=== PATIENT | female | born 1965 | race Caucasian/White ===

== ENCOUNTER → 2018-01-15 08:43 | Outpatient (CLI) | payer BC, SELFPAY ==
--- NOTE | 2018-01-15 08:45 | MM_ITS ---
MM Dig screening mamm BI w/CAD ORDERING PHYSICIAN : WM Paco Sahni PATIENT AGE: 52 years GENDER: Female COMPARISON: Awaiting outside films from [place] but they have not arrived. And now Report requested INDICATION: ITS.REASON: Routine SCREENING no hormones. No new complaints.Noncontributory family history. This patient had uterine cancer 23 years ago TECHNIQUE: Standard CC and MLO images were obtained. R2 CAD reviewed. Additional CC right breast with additional nipple profile MLO view left breast included. FINDINGS: Low-density breast bilaterally. Minimal residual fibroglandular elements with moderate Generalized fatty replacement. No persistent suspicious mass. No Dominant mass. Nor suspicious calcifications either breast. .. Left breast. Unremarkable. No areas of common or concern. RIGHT BREAST. No areas of significant concern Subtle area focal density superior right breast on MLO view dissipates not evident on the two cc view views of the right breast and thus not felt to be of concern.Follow-up in one year adequate Small collection of benign-appearing calcifications the medial right breast can be followed as well. Next Bilateral follow-up in one year recommended and should be encouraged. IMPRESSION: Low-density breast with no areas of significant concern.. Bilateral follow-up one year recommended at this point. (We have been waiting outside studies from [place] but they have not yet arrived. Addendum may follow it does do become available BI-RADS Category: 2 Benign Finding(s) RECOMMENDED FOLLOW-UP: 1YR 1 YEAR FOLLOW-UP ) (A letter has been sent to the patient regarding results of the study.)
== END ==
PROVIDERS: PCP Family Medicine; Visit Provider Family Medicine
DX: Z12.31 Encounter for screening mammogram for malignant neoplasm of breast (principal)
CPT/HCPCS: 77067

== ENCOUNTER → 2018-12-16 14:44 | Outpatient (CLI) | payer BC, SELFPAY ==
[2018-12-16 17:48] LABS: Basophils % 0.7 % (0.1-2.0); Eosinophils # 0.1 K/mm3 (0.0-0.4); Eosinophils % 2.3 % (0.1-12.0); Hematocrit 41.1 % (37.0-47.0); Lymphocytes # 1.2 K/mm3 (0.7-4.5); Lymphocytes % 32.8 % (10-50); Mean Corpuscular HGB Conc 31.7 g/dL (31.8-35.4); Mean Corpuscular Hemoglobin 31.4 pg (27.0-31.2); Mean Corpuscular Volume 98.9 fl (81-99); Mean Platelet Volume 8.5 fl (7.4-10.4); Monocytes # 0.2 K/mm3 (0.1-1.0); Neutrophils # 2.2 K/mm3 (1.8-7.8); Neutrophils % 58.3 % (37.0-80.0); Platelet Count 91 K/mm3 (142-424); Red Blood Count 4.15 M/mm3 (4.20-5.40); Red Cell Distribution Width 13.6 % (11.5-17.5); White Blood Count 3.7 K/mm3 (4.8-10.8)
[2018-12-18 05:11] LABS: Hep A Ab, IgM Negative (Negative); Hepatitis B Core Antibody IgM Negative (Negative); Hepatitis B Surface Antigen Negative (Negative)
[2018-12-18 18:15] LABS: Hepatitis C Antibody <0.1 s/co ratio (0.0-0.9)
== END ==
PROVIDERS: Visit Provider Internal Medicine Hematology & Oncology
DX: D69.6 Thrombocytopenia, unspecified (principal)
CPT/HCPCS: 36415; 80074; 85025

== ENCOUNTER → 2019-01-28 10:18 | Outpatient (CLI) | payer BC, SELFPAY ==
--- NOTE | 2019-01-28 10:22 | MM_ITS ---
PROCEDURE: MM DIG SCREENING MAMM BI W/CAD CLINICAL INDICATION: SCREENING There is no personal or family history of breast cancer. COMPARISON: DIG MAMMO BILAT SCREENING from 06/10/2013 DIG MAMMO BILAT SCREENING from 06/20/2014 DIG MAMMO BILAT SCREENING from 07/11/2015 [facility] MM Dig screening mamm BI w/CAD from 01/15/2018 TECHNIQUE: Standard CC and MLO images were obtained. R2 CAD reviewed. FINDINGS: Scattered diffuse fibroglandular densities are seen throughout both breasts. There is a stable cluster of microcalcifications inner quadrant right breast. There are couple of benign-appearing microcalcifications central portion left breast as well. There is no suspicious lesion and no suspicious microcalcifications. IMPRESSION: Fibrofatty parenchyma with no suspicious lesions seen BI-RAD Category: 2 Benign Finding(s) FOLLOW-UP: 1YR 1 Year Follow-up (A letter has been sent to the patient regarding results of the study.) Dictated by: Dr. Brandon Marie MD 01/30/2019 09:[address] Brandon Marie MD in [place] 01/30/2019 09:31
== END ==
PROVIDERS: PCP Family Medicine; Visit Provider Family Medicine
DX: Z12.31 Encounter for screening mammogram for malignant neoplasm of breast (principal)
CPT/HCPCS: 77067

== ENCOUNTER → 2019-02-28 13:21 | Outpatient (POV) | payer BC, SELFPAY ==
[2019-02-28 15:24] LABS: Basophils % 0.7 % (0.1-2.0); Eosinophils # 0.1 K/mm3 (0.0-0.4); Hematocrit 43.8 % (37.0-47.0); Lymphocytes # 1.2 K/mm3 (0.7-4.5); Lymphocytes % 29.4 % (10-50); Mean Corpuscular HGB Conc 32.1 g/dL (31.8-35.4); Mean Corpuscular Hemoglobin 30.1 pg (27.0-31.2); Mean Corpuscular Volume 93.8 fl (81-99); Mean Platelet Volume 8.6 fl (7.4-10.4); Monocytes # 0.2 K/mm3 (0.1-1.0); Monocytes % 4.7 % (1.7-9.3); Neutrophils # 2.6 K/mm3 (1.8-7.8); Neutrophils % 62.3 % (37.0-80.0); Platelet Count 114 K/mm3 (142-424); Red Blood Count 4.67 M/mm3 (4.20-5.40); Red Cell Distribution Width 13.4 % (11.5-17.5); White Blood Count 4.2 K/mm3 (4.8-10.8)
[2019-02-28 15:28] LABS: INR 1.04 (0.9-1.1); Prothrombin Time 10.8 seconds (9.4-11.8)
[2019-02-28 16:36] LABS: Alanine Aminotransferase 52 U/L (12-78); Albumin Level 3.5 gm/dL (3.4-5.0); Alkaline Phosphatase 117 U/L (46-116); Anion Gap 9.1 mEq/L (5-15); Aspartate Amino Transferase 69 U/L (15-37); Bilirubin,Total 0.8 mg/dL (0.2-1.0); Blood Urea Nitrogen 10 mg/dL (7-18); Calcium 8.7 mg/dL (8.5-10.1); Carbon Dioxide 29 mmol/L (21.0-32.0); Chloride 102 mmol/L (98-107); Estimated Glomerular Filt Rate 105 ml/min (>60); Ferritin 164 ng/mL (8-388); GFR (African American) 127 ML/MIN (>60); Globulin 3.6 gm/dl (1.3-3.2); Glucose 92 mg/dL (74-106); Potassium 4.1 mmoL/L (3.5-5.1); Sodium 136 mmol/L (136-145); Total Protein,Serum 7.1 gm/dL (6.4-8.2)
[2019-03-02 10:29] LABS: Hep A Ab, IgM Negative (Negative); Hepatitis B Core Antibody IgM Negative (Negative); Hepatitis B Surface Antigen Negative (Negative); Iron 87 ug/dL (27-159); Iron Saturation 22 % (15-55); UIBC 300 ug/dL (131-425)
[2019-03-02 11:39] LABS: Ceruloplasmin 25.1 mg/dL (19.0-39.0); Immunoglobulin A, Qn 603 mg/dL (87-352); Immunoglobulin G, Qn 1450 mg/dL (700-1600)
[2019-03-02 18:17] LABS: Actin (Smooth Muscle) Antibody 16 Units (0-19); Angiotensin Converting Enzyme 21 U/L (14-82); Deamidated Gliadin Abs, IgA 4 units (0-19); Deamidated Gliadin Abs, IgG 2 units (0-19); Immunoglobulin M, Qn 142 mg/dL (26-217); Liver-Kidney Microsomal Ab 1.6 Units (0.0-20.0); Mitochondrial (M2) Antibody <20.0 Units (0.0-20.0); Tissue Transglutaminase IgA Ab <2 U/mL (0-3); Tissue Transglutaminase IgG Ab 4 U/mL (0-5)
[2019-03-02 18:18] LABS: Hepatitis C Antibody <0.1 s/co ratio (0.0-0.9)
[2019-03-04 12:33] LABS: Endomysial IgA Antibody Negative (Negative)
[2019-03-04 17:08] LABS: Alpha-1-Antitrypsin 161 mg/dL (101-187)
[2019-03-05 06:09] LABS: ALT (SGPT) P5P 57 IU/L (0-40); AST (SGOT) P5P 82 IU/L (0-40); Alpha 2-Macroglobulins, Qn 352 mg/dL (110-276); Apolipoprotein A-1 165 mg/dL (116-209); Bilirubin, Total 0.7 mg/dL (0.0-1.2); Cholesterol, Total 223 mg/dL (100-199); Fibrosis Score 0.78 (0.00-0.21); GGT 100 IU/L (0-60); Glucose 90 mg/dL (65-99); Haptoglobin 21 mg/dL (33-346); NASH Score 0.75 (0.25); Steatosis Score 0.54 (0.00-0.30); Triglycerides 106 mg/dL (0-149)
[2019-03-05 09:11] LABS: Reticulin IgA Antibody Negative titer (Neg:<1:2.5)
[2019-03-12 16:39] LABS: Antinuclear Antibodies (ANA) NEGATIVE
== END ==
PROVIDERS: Visit Provider Nurse Practitioner Family
DX: R94.5 Abnormal results of liver function studies (principal); R16.1 Splenomegaly, not elsewhere classified
CPT/HCPCS: 36415; 80053; 80074; 81256; 82103; 82104; 82164; 82390; 82728; 82784; 83516; 83540; 83550; 85025; 85610; 86038; 86255; 86256; 86376

== ENCOUNTER → 2020-02-09 16:03 | Outpatient (CLI) | payer BC, SELFPAY ==
--- NOTE | 2020-02-09 16:06 | MM_ITS ---
PROCEDURE: MM DIG SCREENING MAMM BI W/CAD Referring Doctor: Delvis Rosario Patient Age:54Y CLINICAL INDICATION: SCREENING 54-year-old. No new complaints. No hormones. Patient states hysterectomy age 30 uterine cancer Family history-unremarkable COMPARISON: MG DIG MAMMO BILAT SCREENING from 05/28/2011 MG DIG MAMMO BILAT SCREENING from 06/10/2013 MG DIG MAMMO BILAT SCREENING from 06/20/2014 MG DIG MAMMO BILAT SCREENING from 07/11/2015 [facility] MM Dig screening mamm BI w/CAD from 01/15/2018 MG MM DIG SCREENING MAMM BI W/CAD from 01/28/2019 TECHNIQUE: Standard CC and MLO images were obtained. R2 CAD reviewed. Bilateral digital breast tomosynthesis included. Additional right MLO view nipple profile included FINDINGS: -. Minimal residual fibroglandular elements with diffuse fatty replacement but no new dominant or suspicious mass but no suspicious calcifications No new areas of concern when compared to to multiple prior studies. IMPRESSION: Stable mammogram bilateral. No new areas of concern when compared to to multiple prior studies. Low-density breast; bilateral follow-up 1 year recommended BI-RAD Category: 1 Negative FOLLOW-UP: 1YR 1 Year Follow-up (A letter has been sent to the patient regarding results of the study.) Dictated by: Tani Tijerina MD 02/12/2020 16:42 Tani Tijerina MD in [place] 02/12/2020 16:42
== END ==
PROVIDERS: Visit Provider Physician Assistant
DX: Z12.31 Encounter for screening mammogram for malignant neoplasm of breast (principal)
CPT/HCPCS: 77063; 77067

== ENCOUNTER 2021-05-02 16:55 | Emergency (ER) | payer BC, SELFPAY ==
[2021-05-02 16:57] VITALS: BP 121/63; PULSE 91; RESP 18; TEMP 36.9; O2SAT 98; BMI 40.7
--- NOTE | 2021-05-02 17:19 | XR_ITS ---
PROCEDURE INFORMATION: Exam: XR Chest Exam date and time: 05/02/2021 5:24 PM Age: 55 years old Clinical indication: Shortness of breath; Additional info: SOB TECHNIQUE: Imaging protocol: XR of the chest. Views: 1 view. Total images: 2 COMPARISON: No relevant prior studies available. FINDINGS: Lungs: Question mild central vascular congestion. Patchy mild alveolar density in the medial right lung base, atelectasis versus pneumonia. Pleural spaces: No pleural effusion. No pneumothorax. Heart/Mediastinum: Heart size normal. No tracheal/mediastinal shift. Diaphragm: Mild elevation of the right hemidiaphragm, age indeterminate. Bones/joints: No acute osseous abnormalities are identified. IMPRESSION: 1. Mild airspace disease in the medial right lung base, atelectasis versus pneumonia. 2. Mild elevation of the right hemidiaphragm.
[2021-05-02 18:01] LABS: Basophils # 0.2 K/mm3 (0-0.2); Basophils % 3.9 % (0.1-2.0); Eosinophils # 0.1 K/mm3 (0.0-0.4); Eosinophils % 2.3 % (0.1-12.0); Hematocrit 34.2 % (37.0-47.0); Hemoglobin 10.9 g/dL (12.2-16.2); Lymphocytes # 0.8 K/mm3 (0.7-4.5); Lymphocytes % 21.2 % (10-50); Mean Corpuscular HGB Conc 31.9 g/dL (31.8-35.4); Mean Corpuscular Hemoglobin 32.3 pg (27.0-31.2); Mean Corpuscular Volume 101.3 fl (81-99); Monocytes # 0.3 K/mm3 (0.1-1.0); Monocytes % 9.1 % (1.7-9.3); Neutrophils # 2.3 K/mm3 (1.8-7.8); Neutrophils % 63.5 % (37.0-80.0); Platelet Count 89 K/mm3 (142-424); Red Blood Count 3.37 M/mm3 (4.20-5.40); Red Cell Distribution Width 15.8 % (11.5-17.5); White Blood Count 3.7 K/mm3 (4.8-10.8)
--- NOTE | 2021-05-02 18:12 | HMH.EDGENADL ---
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 Wear compression stockings during the day to minimize leg swelling. Continue home medications as previously directed, return with new or concerning symptoms. Prescriptions: Amoxicillin/Potassium Clav [Amox-Clav 875-125 mg Tablet] 1 tab PO BID #14 tab Transmission Status: Received by [facility] Doxycycline Monohydrate [Doxycycline [place] 100mg Tab] 100 mg PO Q12 5 Days #10 tab Transmission Status: Received by [facility] Referrals: Delvis Rosario PA [Primary Care Provider] - - Critical Care Critical Care Time: No Attestation: On 05/02/21, the high probability of a clinically significant, sudden or life threatening deterioration of the following system(s) required my full and direct attention, intervention and personal management. The time I documented below is in addition to time spent performing reported procedures but includes the following listed in this critical care notation. Medical Decision Making - Medical Records Medical records reviewed: Yes: I reviewed the patient's medical records. - Brodie Inquiry Pt receiving controlled substance: No Vital Signs: 05/02/21 16:57 Temperature 98.4 F Temperature Source Oral Pulse Rate [Radial] 91 H Respiratory Rate 18 Blood Pressure [Right Arm] 121/63 Blood Pressure Mean [Right Arm] 82 Blood Pressure Position [Right Arm] Sitting 02 Sat by Pulse Oximetry 98 Oxygen Delivery Method Room Air - Lab Data Lab Results 05/02/21 17:45: WBC 3.7 L, RBC 3.37 L, Hgb 10.9 L, Hct 34.2 L, MCV 101.3 H, MCH 32.3 H, MCHC 31.9, RDW 15.8, Plt Count 89 L, MPV 9.0, Neut % (Auto) 63.5, Lymph % (Auto) 21.2, [place] % (Auto) 9.1, Eos % (Auto) 2.3, Baso % (Auto) 3.9 H, Neut # (Auto) 2.3, Lymph # (Auto) 0.8, [place] # (Auto) 0.3, Eos # (Auto) 0.1, Baso # (Auto) 0.2 05/02/21 17:45: Sodium 136, Potassium 3.6, Chloride 109 H, Carbon Dioxide 26, Anion Gap 4.6 L, BUN 9, Creatinine 0.50 L, Estimated Creat Clear 223, Estimated GFR 128, Est GFR ( Amer) 155, Glucose 140 H, Calcium 7.4 L, Total Bilirubin 2.0 H, AST 100 H, ALT 49, Alkaline Phosphatase 172 H, Troponin I 0.02, Total Protein 6.2 L, Albumin 2.9 L, Globulin 3.3 H, Albumin/Globulin Ratio 0.9 L 05/02/21 17:45: PT 12.3, INR 1.10 05/02/21 17:45: NT-Pro-B Natriuret Pep 62.3 Result diagrams: 05/02/21 17:45 05/02/21 17:45 Orders (Tests/Meds): ORDERS Category Date Time Status Troponin I Q3H Lab 05/02/21 23:30 Ordered Urinalysis and Microscopic Stat Lab 05/02/21 20:36 Received - Radiology Data #1 Image(s): Chest Image Reviewed: Yes I reviewed the patient's radiology results, Yes I reviewed the patient's radiology image FINDINGS: Lungs: Question mild central vascular congestion. Patchy mild alveolar density in the medial right lung base, atelectasis versus pneumonia. Pleural spaces: No pleural effusion. No pneumothorax. Heart/Mediastinum: Heart size normal. No tracheal/mediastinal shift. Diaphragm: Mild elevation of the right hemidiaphragm, age indeterminate. Bones/joints: No acute osseous abnormalities are identified. IMPRESSION: 1. Mild airspace disease in the medial right lung base, atelectasis versus pneumonia. 2. Mild elevation of the right hemidiaphragm. - ECG Data Tracing #1 I reviewed this ECG and interpreted as documented below: EKG normal sinus rhythm with a rate of 85 bpm, Q waves in lead III no ST segment elevation, no ST depression Medical Decision Narrative: 55-year-old female with past medical history of Montes cirrhosis diabetes who is prese
[2021-05-02 18:13] LABS: Chloride 109 mmol/L (98-107)
[2021-05-02 18:14] LABS: Potassium 3.6 mmoL/L (3.5-5.1); Sodium 136 mmol/L (136-145)
[2021-05-02 18:16] LABS: Alanine Aminotransferase 49 U/L (12-78); Albumin Level 2.9 g/dl (3.5-5.0); Albumin/Globulin Ratio 0.9 (1.1-1.8); Alkaline Phosphatase 172 U/L (38-126); Anion Gap 4.6 mEq/L (5-15); Aspartate Amino Transferase 100 U/L (14-36); Blood Urea Nitrogen 9 mg/dl (7-17); Carbon Dioxide 26 mmol/L (22.0-30.0); Creatinine Clearance Estimated 223 mL/min (50-200); Estimated Glomerular Filt Rate 128 ml/min (>60); GFR (African American) 155 ML/MIN (>60); Globulin 3.3 g/dL (1.3-3.2); Total Protein,Serum 6.2 g/dl (6.3-8.2)
[2021-05-02 18:17] LABS: Calcium 7.4 mg/dl (8.4-10.2); Glucose 140 mg/dl (74-100)
[2021-05-02 18:29] LABS: Troponin I 0.02 ng/ml (0.00-0.034)
--- NOTE | 2021-05-02 19:01 | ECG_ITS ---
APPROVED REPORT Exam: Resting ECG HR:85 bpm ECG Measurements Heart Rate 85 AXES KS 179 P 30 QRSd 102 QRS 39 QT 384 T 51 QTc 426 Conclusion SINUS RHYTHM NORMAL ECG UNCONFIRMED REPORT Electronically signed by : Lorenzo Senior MD 05/03/2021 19:38:36
[2021-05-02 19:07] LABS: Prothrombin Time 12.3 seconds (10.1-12.5)
--- NOTE | 2021-05-02 19:09 | PC.NURSE ---
PT RESTING UPDATED ON PLAN OF CARE
[2021-05-02 19:39] LABS: NT Pro Brain Natriuretic Pep. 62.3 pg/mL (0-125)
[2021-05-02 20:49] LABS: Microscopic, Urine URINE MICROSCOPIC (MICROSCOPIC)
[2021-05-02 21:17] LABS: Appearance,Urine CLEAR (Clear); Blood, Urine 1+ (Negative); Color,Urine YELLOW (Yellow); Glucose,Urine (UA) Negative (Negative); Ketones,Urine Negative (Negative); Leukocyte Esterase,Urine Negative (Negative); Nitrate,Urine Negative (Negative); Protein,Urine Negative (Negative); Specific Gravity, Urine 1.025 (1.005-1.030)
[2021-05-02 21:23] LABS: Bilirubin,Urine Negative (Negative)
[2021-05-02 21:25] VITALS: BP 121/63; PULSE 92; RESP 16; TEMP 37.1; O2SAT 98
[2021-05-02 22:04] LABS: Bacteria,Urine Trace /lpf; RBC,Urine Occasional #/hpf (0-3)
== END 2021-05-02 21:28 | disposition home or self-care (01) ==
PROVIDERS: Emergency Provider Emergency Medicine; PCP Physician Assistant
DX: J18.9 Pneumonia, unspecified organism (principal); J98.11 Atelectasis; R19.7 Diarrhea, unspecified; R11.0 Nausea; I10 Essential (primary) hypertension; E78.5 Hyperlipidemia, unspecified; E11.9 Type 2 diabetes mellitus without complications; K75.81 Nonalcoholic steatohepatitis (NASH); K74.60 Unspecified cirrhosis of liver; F41.9 Anxiety disorder, unspecified; Z79.84 Long term (current) use of oral hypoglycemic drugs; Z79.899 Other long term (current) drug therapy; Z82.49 Family history of ischemic heart disease and other diseases of the circulatory system; Z83.3 Family history of diabetes mellitus; Z80.9 Family history of malignant neoplasm, unspecified
CPT/HCPCS: 71045; 80053; 81001; 83880; 84484; 85025; 85610; 93005; 96365; 99285

== ENCOUNTER 2021-07-01 11:42 | Emergency (ER) | payer BC, SELFPAY ==
[2021-07-01] VITALS (16 sets, daily range): BP systolic 84–117; BP diastolic 31–56; PULSE 88–95; RESP 16–24; TEMP 36.4–37.2; O2SAT 92–100; BMI 38.2
--- NOTE | 2021-07-01 12:02 | XR_ITS ---
FINAL REPORT CLINICAL HISTORY: WEAKNESS, sob COMPARISON: 05/02/2021 FINDINGS: A single PA view of the chest was obtained. There is no prior exam for comparison. The cardiac and mediastinal silhouettes are within normal limits. There are low lung volumes. Bibasilar opacities could be atelectasis or early pneumonia. There is no effusion or pneumothorax. No acute osseous abnormality is identified. IMPRESSION: Bibasilar opacities could represent atelectasis or pneumonia. Reviewed, Interpreted and Dictated by Destiny Leo MD Transcribed by Cesilia Marie Authenticated by Destiny Leo MD on 07/01/2021 01:21:23 PM [facility]
[2021-07-01 12:10] LABS: Basophils % 0.5 % (0.1-2.0); Eosinophils % 0.5 % (0.1-12.0); Lymphocytes # 0.9 K/mm3 (0.7-4.5); Lymphocytes % 10.9 % (10-50); Mean Corpuscular HGB Conc 33.2 g/dL (31.8-35.4); Mean Corpuscular Hemoglobin 31.5 pg (27.0-31.2); Mean Corpuscular Volume 94.9 fl (81-99); Mean Platelet Volume 8.5 fl (7.4-10.4); Monocytes # 0.5 K/mm3 (0.1-1.0); Monocytes % 5.9 % (1.7-9.3); Neutrophils # 6.9 K/mm3 (1.8-7.8); Neutrophils % 82.2 % (37.0-80.0); Platelet Count 168 K/mm3 (142-424); Red Blood Count 3.47 M/mm3 (4.20-5.40); Red Cell Distribution Width 17.2 % (11.5-17.5); White Blood Count 8.4 K/mm3 (4.8-10.8)
[2021-07-01 12:18] LABS: Alanine Aminotransferase 135 U/L (12-78); Albumin Level 2.5 g/dl (3.5-5.0); Albumin/Globulin Ratio 0.7 (1.1-1.8); Alkaline Phosphatase 191 U/L (38-126); Anion Gap 12.7 mEq/L (5-15); Aspartate Amino Transferase 458 U/L (14-36); Bilirubin,Total 2.7 mg/dl (0.2-1.3); Blood Urea Nitrogen 58 mg/dl (7-17); Calcium 7.3 mg/dl (8.4-10.2); Carbon Dioxide 21 mmol/L (22.0-30.0); Chloride 103 mmol/L (98-107); Creatinine Clearance Estimated 44 mL/min (50-200); Estimated Glomerular Filt Rate 21 ml/min (>60); GFR (African American) 25 ML/MIN (>60); Globulin 3.6 g/dL (1.3-3.2); Glucose 91 mg/dl (74-100); Potassium 4.7 mmoL/L (3.5-5.1); Sodium 132 mmol/L (136-145); Total Protein,Serum 6.1 g/dl (6.3-8.2)
[2021-07-01 12:24] LABS: Lactic Acid 1.3 mmol/L (0.7-2.1)
[2021-07-01 12:27] LABS: Ammonia 124 umol/L (9-30); INR 1.19 (0.9-1.1); Prothrombin Time 13.3 seconds (10.1-12.5)
--- NOTE | 2021-07-01 13:34 | PC.NURSE ---
ER doctor talking to Dr Thornton at about patient.
[2021-07-01 13:52] LABS: Microscopic, Urine URINE MICROSCOPIC (MICROSCOPIC)
[2021-07-01 13:56] LABS: Coronavirus 19, PCR Not Detected (NotDetected); Influenza A, PCR Not Detected (NotDetected); Influenza B, PCR Not Detected (NotDetected)
--- NOTE | 2021-07-01 13:57 | CT_ITS ---
FINAL REPORT TECHNIQUE: Thin section axial images were obtained from the lung bases to the pubic symphysis without IV contrast. CLINICAL HISTORY: abd pain, diarrhea, decompnesated cirrhosis FINDINGS: There is dependent atelectasis in the lung bases. The liver is small and nodular, consistent with cirrhosis. No focal lesion is seen on this unenhanced exam. There is borderline splenomegaly measuring 12.5 cm. The adrenal glands and pancreas are unremarkable. No renal mass, stone, or hydronephrosis is seen. Abdominal GI tract demonstrates wall thickening of small bowel loops and colon, greater than normally seen in the setting of ascites. Underlying colitis is not excluded. There is moderate abdominal ascites. There is a Fernando catheter in the urinary bladder. The uterus has likely been resected. The appendix is not visualized. There is a large amount of ascites in the pelvis. There is no lymphadenopathy. Osseous structures are unremarkable. IMPRESSION: Cirrhosis with moderate to large ascites. Colonic wall thickening greater than expected in the setting of ascites. Underlying colitis is not excluded. Reviewed, Interpreted and Dictated by Destiny Leo MD Transcribed by Mahsa Sheikh Authenticated by Destiny Leo MD on 07/01/2021 03:14:09 PM [facility]
[2021-07-01 14:02] LABS: Appearance,Urine CLOUDY (Clear); Blood, Urine TRACE-I (Negative); Color,Urine YELLOW (Yellow); Glucose,Urine (UA) Negative (Negative); Ketones,Urine TRACE (Negative); Leukocyte Esterase,Urine TRACE (Negative); Nitrate,Urine Negative (Negative); Protein,Urine TRACE (Negative); Specific Gravity, Urine >= 1.030 (1.005-1.030)
[2021-07-01 14:04] LABS: Appearance,Body Fld. Normal; Source, Body Fld. Peritoneal Fluid
[2021-07-01 14:05] LABS: RBC,Body Fluid < 10 cells/uL (< 10 X 10^3); TNC,Body Fluid < 20 cells/uL (< 1000); Volume,Body Fld. 22 mL
[2021-07-01 14:19] LABS: Bilirubin,Urine 2+ (Negative)
[2021-07-01 14:20] LABS: Bacteria,Urine 3+ /lpf
--- NOTE | 2021-07-01 14:53 | PC.NURSE ---
Dr Farooq speaking with Dr Thornton at
--- NOTE | 2021-07-01 15:22 | HMH.EDGENADL ---
ED Disposition Clinical Impression: Severe sepsis, Shock, Decompensated hepatic cirrhosis Disposition: Xfer Short-Term Hosp Condition on Discharge: Critical Referrals: Provider,Referral, [Primary Care Provider] - Forms: Transfer Record - ED - Critical Care Critical Care Time: Yes Attestation: On 07/01/21, the high probability of a clinically significant, sudden or life threatening deterioration of the following system(s) required my full and direct attention, intervention and personal management. The time I documented below is in addition to time spent performing reported procedures but includes the following listed in this critical care notation. Total Critical Care Time: 75 Vital system(s) involved:: Circulatory Failure, Metabolic Failure, Shock (Septic) My critical care processes included: Assessment & monitoring of V/S, Initial and Re-exams, Data Review/Interpretation, Coordinating Care, Medication Orders and management, Documentation Medical Decision Making - Medical Records Medical records reviewed: Yes: I reviewed the patient's medical records. - Brodie Inquiry Pt receiving controlled substance: No Vital Signs: 07/01/21 11:43 07/01/21 12:00 07/01/21 12:30 Temperature 97.5 F L Temperature Source Oral Pulse Rate 93 H 92 H Pulse Rate [Radial] 90 Respiratory Rate 24 20 18 Blood Pressure 90/39 L 96/43 L Blood Pressure [Right Arm] 84/31 L Blood Pressure Mean 59 61 Blood Pressure Mean [Right Arm] 48 Blood Pressure Position [Right Arm] Sitting 02 Sat by Pulse Oximetry 98 98 100 Oxygen Delivery Method Room Air 07/01/21 13:00 07/01/21 13:30 07/01/21 14:01 Temperature Temperature Source Pulse Rate 91 H 90 95 H Pulse Rate [Radial] Respiratory Rate 18 20 18 Blood Pressure 92/39 L 87/35 L 117/56 L Blood Pressure [Right Arm] Blood Pressure Mean 53 48 66 Blood Pressure Mean [Right Arm] Blood Pressure Position [Right Arm] 02 Sat by Pulse Oximetry 99 99 99 Oxygen Delivery Method 07/01/21 14:30 07/01/21 15:00 07/01/21 15:30 Temperature Temperature Source Pulse Rate 88 94 H 92 H Pulse Rate [Radial] Respiratory Rate 16 18 18 Blood Pressure 94/37 L 94/45 L 98/33 L Blood Pressure [Right Arm] Blood Pressure Mean 58 57 57 Blood Pressure Mean [Right Arm] Blood Pressure Position [Right Arm] 02 Sat by Pulse Oximetry 99 92 L Oxygen Delivery Method 07/01/21 16:00 Temperature Temperature Source Pulse Rate 92 H Pulse Rate [Radial] Respiratory Rate 16 Blood Pressure 105/46 L Blood Pressure [Right Arm] Blood Pressure Mean 65 Blood Pressure Mean [Right Arm] Blood Pressure Position [Right Arm] 02 Sat by Pulse Oximetry 92 L Oxygen Delivery Method - Lab Data Lab Results 07/01/21 11:50: WBC 8.4, RBC 3.47 L, Hgb 11.0 L, Hct 33.0 L, MCV 94.9, MCH 31.5 H, MCHC 33.2, RDW 17.2, Plt Count 168, MPV 8.5, Neut % (Auto) 82.2 H, Lymph % (Auto) 10.9, [place] % (Auto) 5.9, Eos % (Auto) 0.5, Baso % (Auto) 0.5, Neut # (Auto) 6.9, Lymph # (Auto) 0.9, [place] # (Auto) 0.5, Eos # (Auto) 0.0, Baso # (Auto) 0.0 07/01/21 11:50: Sodium 132 L, Potassium 4.7, Chloride 103, Carbon Dioxide 21 L, Anion Gap 12.7, BUN 58 H, Creatinine 2.40 H, Estimated Creat Clear 44, Estimated GFR 21 L, Est GFR ( Amer) 25 L, Glucose 91, Calcium 7.3 L, Total Bilirubin 2.7 H, AST 458 H*, ALT 135 H, Alkaline Phosphatase 191 H, Total Protein 6.1 L, Albumin 2.5 L, Globulin 3.6 H, Albumin/Globulin Ratio 0.7 L 07/01/21 11:50: Lactate 1.3 07/01/21 11:50: PT 13.3 H, INR 1.19 H 07/01/21 11:50: Ammonia 124 H 07/01/21 13:16: Fluid Source Peritoneal fluid, Fluid Volume 22, Fluid Appearance Normal, Fluid RBC (Auto) < 10, Fld Tot Nucleated Cell < 20, Fld Polynuclear WBCs % 16, Fld Mononuclear WBCs % 84 07/01/21 13:30: Urine Color Yellow, Urine Appearance Cloudy, Urine pH 5.0, Ur Specific [place] >= 1.030, Urine Protein Trace, Urine Glucose (UA) Negative, Urine Ketones Trace, Urine Blood Trace-i, Urine N
[2021-07-01 15:47] LABS: Mononuclear WBCs,Body Fluid 84 %; Polynuclear WBC,Body Fluid 16 %
--- NOTE | 2021-07-01 16:30 | PC.NURSE ---
Pt updated on POC
--- NOTE | 2021-07-01 18:45 | PC.NURSE ---
Spoke with mother and pt and updated them on POC. Advised them we were calling [facility] back to check on bed status, no new needs at this time
--- NOTE | 2021-07-01 20:15 | PC.NURSE ---
Notified [facility] pt is ready to be transferred to [facility]
--- NOTE | 2021-07-01 20:17 | PC.NURSE ---
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
== END 2021-07-01 21:52 | disposition short-term general hospital (02) ==
PROVIDERS: Emergency Provider Student in an Organized Health Care Education/Training Program
DX: K75.81 Nonalcoholic steatohepatitis (NASH) (principal); K72.90 Hepatic failure, unspecified without coma; A41.9 Sepsis, unspecified organism; R57.9 Shock, unspecified; N17.9 Acute kidney failure, unspecified; E11.65 Type 2 diabetes mellitus with hyperglycemia; I10 Essential (primary) hypertension; K74.69 Other cirrhosis of liver
CPT/HCPCS: 49083; 71045; 74176; 80053; 81001; 82140; 83605; 85025; 85610; 87040; 87070; 87086; 87088; 87186; 87205; 89051; 96365; 96366; 96367; 99291; 99292; C9803; U0003; U0005